=== PATIENT | male | born 1985 | race Two or more races ===

== ENCOUNTER → 2025-06-15 | Emergency (ER) | payer OTHER ==
[~2025-06-15] VITALS: Ht 154.9 cm; Wt 83.9 kg
[~2025-06-15] MED LIST: KETOROLAC TROMETHAMINE 30 MG VIAL IM ONE; KETOROLAC TROMETHAMINE 30 MG VIAL ONE
== END | disposition left against medical advice (07) ==
LOC: ER 12:52
DX: S99.811A Other specified injuries of right ankle, initial encounter (principal); X58.XXXA Exposure to other specified factors, initial encounter; Y93.73 Activity, racquet and hand sports; Y92.89 Other specified places as the place of occurrence of the external cause; Y99.8 Other external cause status
CPT/HCPCS: 96372; 99282; J1885